=== PATIENT | female | born 1975 | race Caucasian/White ===

== ENCOUNTER → 2017-08-16 | Outpatient (CLI) | payer BC ==
[~2017-08-16] MED LIST: IBUP600T44 PO; OXYC-57 PO; PRENTAB26 PO
--- NOTE | 2017-08-16 14:34 | MAMMOGRAPHY REPORT ---
BILATERAL DIGITAL DIAGNOSTIC MAMMOGRAM TOMOSYNTHESIS WITH CAD AND TARGETED LEFT ULTRASOUND: 7 CLINICAL HISTORY: The patient reports that her provider felt a palpable lump during a routine breast exam. The referring provider note states that the lump was located in the left 5 to 6:00 breast appr oximately 4 cm from the nipple and was pea-sized and mobile. TECHNIQUE: Breast tomosynthesis in addition to standard 2D mammography was performed. Current study was also evaluated with a Computer Aided Detection (CAD) system. Bilateral CC and MLO 2-D and tomosy nthesis images were obtained. COMPARISON: No prior exams were available for comparison. BREAST COMPOSITION: There are scattered areas of fibroglandular density in both breasts. FINDINGS: A triangle marker marx the site of the palpable lump pointed out by the patient in the lef t lower inner quadrant. There are no suspicious masses, calcifications, or areas of architectural di stortion noted within either breast. Scattered bilateral benign rim calcifications are noted. Targeted ultrasound was performed of the area of the palpable lump. The patient could not pinpoint t he exact location of the lump, therefore, ultrasound was performed of the area of the lump described on the provider note in the left 5 to 6:00 breast, centered around 4 cm from the nipple. Sonographic ally normal tissue is seen in this region, without evidence of a mass or other suspicious sonographic abnormality. IMPRESSION: ACR BI-RADS CATEGORY 2: BENIGN, TARGETED ULTRASOUND ACR BI-RADS CATEGORY 2: BENIGN No suspicious mammographic or sonographic abnormality in the general region of the palpable left nadine st lump. There is no mammographic or targeted sonographic evidence of malignancy. Recommend clinica l follow-up for the palpable left breast lump; any decision to biopsy should be based on clinical gio unds. Also recommend routine bilateral screening mammograms in one year. The patient has been verbally notified of the results. Approximately 10% of breast cancers are not detected with mammography. A negative mammographic report should not delay biopsy if a clinically suggestive mass is present. Yuliana Duffy M.D. /:08/16/2017 10:34:48 Plate Washer: Roseline FREGOSO(Ella)([place]), [facility] letter sent: Normal 1/2 BI-RADS Code: ACR BI-RADS Category 2: Benign Ultrasound BI-RADS: ACR BI-RADS Category 2: Benign
== END | disposition home or self-care (01) ==
LOC: C.MAMM 09:46
PROVIDERS: ATTEND Physician Assistant
DX: N63.20 Unspecified lump in the left breast, unspecified quadrant (principal)